=== PATIENT | female | born 1970 | race Caucasian/White ===

== ENCOUNTER 2017-07-09 15:19 | Emergency (ER) | payer BC ==
[~2017-07-09] VITALS: Ht 167.6 cm; Wt 116.7 kg
[2017-07-09 16:22] VITALS: BP 131/67
--- NOTE | 2017-07-09 19:21 | NUR ---
47/F CAME IN W C/O PRODUCTIVE COUGH OF GREEN PHLEGM AND CONGESTION X 3 WEEKS. PT STATES SHE WAS SEEN IN URGENT CARE X WEDNESDAY, RX: AMOXICILLIN, REPORTS NO RELIEF. CONTINUOUS WITH SAME SYMPTOMS. CURRENTL AFEBRILE. ALL LUNG SOUNDS CBTA, 20RR EVEN AND UNLABORED. PMH: PNM, ASTHMA, HTN
--- NOTE | 2017-07-09 19:21 | NUR ---
Patient to OF. RN evaluating patient.
--- NOTE | 2017-07-09 19:52 | NUR ---
Patient discharged with v/s stable. Written and verbal after care instructions given and explained. Patient alert, oriented and verbalized understanding of instructions. Ambulatory with steady gait. All questions addressed prior to discharge. ID band removed. Patient advised to follow up with PMD. Rx of AZITHROMYCIN AND COPDEINE PHOSPHATE given. Patient educated on indication of medication including possible reaction and side effects. Opportunity to ask questions provided and answered.
[2017-07-09 20:04] VITALS: BP 121/72
== END 2017-07-09 19:52 | disposition home or self-care (01) ==
LOC: MED 15:19
DX: J32.9 Chronic sinusitis, unspecified (principal); J45.909 Unspecified asthma, uncomplicated; I10 Essential (primary) hypertension; Z90.89 Acquired absence of other organs; Z88.1 Allergy status to other antibiotic agents; Z88.8 Allergy status to other drugs, medicaments and biological substances
CPT/HCPCS: 99283